=== PATIENT | male | born 1935 | race Caucasian/White ===

== ENCOUNTER 2017-11-16 23:19 | Inpatient (IN) | payer OTHER ==
[~2017-11-16] VITALS: Ht 177.8 cm; Wt 87.1 kg
[~2017-11-16 23:19] MED LIST: IBUP600 PO; Norco 5-325 Ta1 EACH PO; Robaxin-750750 MG PO
[2017-11-16] MEDS ORDERED: MELO7.5 (23:46)
[2017-11-16] MEDS ORDERED: LOSA50 PO (23:46)
[2017-11-16] MEDS ORDERED: METF500 PO (23:47)
[2017-11-16] MEDS ORDERED: LOVA40 (23:47)
[2017-11-16] MEDS ORDERED: GLYB3 PO (23:48)
[2017-11-17 00:46] LABS: Anion Gap 10 mmol/L (6-16); Blood Urea Nitrogen 27 mg/dL (8-24); Bun/Creatinine Ratio 22.1 (12.0-20.0); CO2, Blood 23 mmol/L (21-32); Calcium, Blood 8.6 mg/dL (8.5-10.1); Chloride, Blood 105 mmol/L (98-108); Creatinine, Blood 1.22 mg/dL (0.60-1.20); Glomerular Filtration Rate >60 (60-); Glucose, Blood 184 mg/dL (70-99); Sodium, Blood 138 mmol/L (136-145)
[2017-11-17 01:09] LABS: BASOPHILS ABSOLUTE AUTO 0.01 K/mm3 (0.00-0.23); BASOPHILS PERCENT AUTO 0 % (0-2); EOSINOPHILS PERCENT AUTO 0 % (0-6); Hematocrit 38.7 % (37.0-53.0); Hemoglobin 12.8 g/dL (13.5-17.5); IMMATURE GRAN ABSOLUTE AUTO 0.01 K/mm3 (0.00-0.10); IMMATURE GRAN PERCENT AUTO 0 % (0-1); LYMPHOCYTES ABSOLUTE AUTO 0.66 K/mm3 (0.84-5.20); LYMPHOCYTES PERCENT AUTO 10 % (21-46); MONOCYTES PERCENT AUTO 6 % (4-13); Mean Corpuscular HGB 29.4 pg (26.0-34.0); Mean Corpuscular HGB Conc 33.1 g/dL (31.5-36.5); Mean Corpuscular Volume 89 fL (80-100); Mean Platelet Volume 10.5 fL (9.1-12.4); NEUTROPHILS ABSOLUTE AUTO 5.48 K/mm3 (1.96-9.15); NEUTROPHILS PERCENT AUTO 83 % (41-73); Platelet Count 170 K/mm3 (150-400); RDW Coefficient Variation 13.4 % (11.7-14.2); RDW Standard Deviation 43.9 fL (35.1-46.3); Red Blood Cell Count 4.36 M/mm3 (4.30-5.90); White Blood Cell Count 6.56 K/mm3 (4.00-11.30)
[2017-11-17 03:15] LABS: Source, Urine Clean Catch
[2017-11-17 03:17] LABS: Bilirubin, Urine Neg (Neg); Blood, Urine Neg (Neg); Glucose Qualitative, Urine 3+ (Neg); Ketones, Urine 1+ (Neg); Leukocyte Esterase, Urine Neg (Neg); Nitrite, Urine Neg (Neg); Protein, Urine Neg (Neg); Urobilinogen, Urine NORM (Normal)
[2017-11-17 03:25] LABS: Appearance, Urine Clear (Clear); Color, Urine Yellow (P-Yellow)
[2017-11-17 04:00] LABS: Alanine Aminotransfer (ALT/SGP 20 U/L (12-78); Albumin, Blood 3.8 g/dL (3.4-5.0); Albumin/Globulin Ratio 1.2 (0.8-1.8); Alk Phos 59 U/L (50-136); Aspartate Aminotrans (AST/SGOT 42 U/L (12-37); Bilirubin, Direct <0.1 mg/dL (0.0-0.3); Bilirubin, Indirect Unable to Calculate mg/dL (0.1-0.7); Bilirubin, Total 0.5 mg/dL (0.1-1.0); Globulin, Blood 3.3 g/dL (2.2-4.0); Total Protein, Blood 7.1 g/dL (6.4-8.2)
[2017-11-17 05:33] LABS: BASOPHILS ABSOLUTE AUTO 0.01 K/mm3 (0.00-0.23); BASOPHILS PERCENT AUTO 0 % (0-2); EOSINOPHILS PERCENT AUTO 0 % (0-6); Hematocrit 38.5 % (37.0-53.0); Hemoglobin 12.9 g/dL (13.5-17.5); IMMATURE GRAN ABSOLUTE AUTO 0.01 K/mm3 (0.00-0.10); IMMATURE GRAN PERCENT AUTO 0 % (0-1); LYMPHOCYTES ABSOLUTE AUTO 0.68 K/mm3 (0.84-5.20); LYMPHOCYTES PERCENT AUTO 14 % (21-46); MONOCYTES ABSOLUTE AUTO 0.19 K/mm3 (0.16-1.47); MONOCYTES PERCENT AUTO 4 % (4-13); Mean Corpuscular HGB 29.6 pg (26.0-34.0); Mean Corpuscular HGB Conc 33.5 g/dL (31.5-36.5); Mean Corpuscular Volume 88 fL (80-100); Mean Platelet Volume 10.8 fL (9.1-12.4); NEUTROPHILS ABSOLUTE AUTO 3.99 K/mm3 (1.96-9.15); NEUTROPHILS PERCENT AUTO 82 % (41-73); Platelet Count 176 K/mm3 (150-400); RDW Coefficient Variation 13.4 % (11.7-14.2); RDW Standard Deviation 43.2 fL (35.1-46.3); Red Blood Cell Count 4.36 M/mm3 (4.30-5.90); White Blood Cell Count 4.88 K/mm3 (4.00-11.30)
[2017-11-17 06:02] LABS: Alanine Aminotransfer (ALT/SGP 18 U/L (12-78); Albumin, Blood 3.8 g/dL (3.4-5.0); Albumin/Globulin Ratio 1.3 (0.8-1.8); Alk Phos 58 U/L (50-136); Anion Gap 9 mmol/L (6-16); Aspartate Aminotrans (AST/SGOT 21 U/L (12-37); Bilirubin, Total 0.3 mg/dL (0.1-1.0); Blood Urea Nitrogen 25 mg/dL (8-24); Bun/Creatinine Ratio 22.1 (12.0-20.0); CO2, Blood 25 mmol/L (21-32); Calcium, Blood 8.5 mg/dL (8.5-10.1); Chloride, Blood 102 mmol/L (98-108); Creatinine, Blood 1.13 mg/dL (0.60-1.20); Glomerular Filtration Rate >60 (60-); Glucose, Blood 143 mg/dL (70-99); Potassium, Blood 3.6 mmol/L (3.5-5.5); Sodium, Blood 136 mmol/L (136-145); Total Protein, Blood 6.8 g/dL (6.4-8.2)
[2017-11-17] MEDS ORDERED: HYDR1TAB94 PO (09:29)
[2017-11-17] MEDS ORDERED: Robaxin-750750 MG PO (09:32)
[2017-11-17] MEDS ORDERED: Lovastatin20 MG PO (09:33)
[2017-11-17] MEDS ORDERED: Amlodipine Bes2.5 MG PO (09:36)
[2017-11-17] MEDS ORDERED: PIOG15 PO (09:37)
[2017-11-17] MEDS ORDERED: Glyburide5 MG PO (09:38)
[2017-11-18 02:55] LABS: Source, Urine Clean Catch
[2017-11-18 03:09] LABS: Bilirubin, Urine Neg (Neg); Blood, Urine 2+ (Neg); Glucose Qualitative, Urine 3+ (Neg); Ketones, Urine 4+ (Neg); Leukocyte Esterase, Urine Neg (Neg); Nitrite, Urine Neg (Neg); Protein, Urine 2+ (Neg); Urobilinogen, Urine NORM (Normal)
[2017-11-18 03:50] LABS: Amorphous Light (0-Heavy); Appearance, Urine Clear (Clear); Bacteria Not Seen /hpf; Color, Urine Yellow (P-Yellow); Mucus Light (0-Heavy); Red Blood Cells, Urine 0-2 /hpf (0-2); Squamous Epithelial Cells Not Seen /hpf (Few); White Blood Cells, Urine Not Seen /hpf (0-5)
[2017-11-20 05:17] LABS: BASOPHILS ABSOLUTE AUTO 0.01 K/mm3 (0.00-0.23); BASOPHILS PERCENT AUTO 0 % (0-2); EOSINOPHILS ABSOLUTE AUTO 0.01 K/mm3 (0.00-0.68); EOSINOPHILS PERCENT AUTO 0 % (0-6); Hematocrit 39.1 % (37.0-53.0); Hemoglobin 12.8 g/dL (13.5-17.5); IMMATURE GRAN PERCENT AUTO 0 % (0-1); LYMPHOCYTES ABSOLUTE AUTO 0.93 K/mm3 (0.84-5.20); LYMPHOCYTES PERCENT AUTO 25 % (21-46); MONOCYTES ABSOLUTE AUTO 0.52 K/mm3 (0.16-1.47); MONOCYTES PERCENT AUTO 14 % (4-13); Mean Corpuscular HGB 29.3 pg (26.0-34.0); Mean Corpuscular HGB Conc 32.7 g/dL (31.5-36.5); Mean Corpuscular Volume 90 fL (80-100); Mean Platelet Volume 11.2 fL (9.1-12.4); NEUTROPHILS ABSOLUTE AUTO 2.24 K/mm3 (1.96-9.15); NEUTROPHILS PERCENT AUTO 60 % (41-73); Platelet Count 168 K/mm3 (150-400); RDW Coefficient Variation 13.4 % (11.7-14.2); RDW Standard Deviation 44.1 fL (35.1-46.3); Red Blood Cell Count 4.37 M/mm3 (4.30-5.90); White Blood Cell Count 3.71 K/mm3 (4.00-11.30)
[2017-11-20 05:45] LABS: Anion Gap 10 mmol/L (6-16); Blood Urea Nitrogen 19 mg/dL (8-24); Bun/Creatinine Ratio 19.5 (12.0-20.0); CO2, Blood 25 mmol/L (21-32); Calcium, Blood 8.1 mg/dL (8.5-10.1); Chloride, Blood 104 mmol/L (98-108); Creatinine, Blood 0.98 mg/dL (0.60-1.20); Glomerular Filtration Rate >60 (60-); Glucose, Blood 64 mg/dL (70-99); Potassium, Blood 3.4 mmol/L (3.5-5.5); Sodium, Blood 139 mmol/L (136-145)
[2017-11-20] MEDS ORDERED: METF500C PO (09:07)
[2017-11-20] MEDS ORDERED: ASPI81CH PO (09:10)
== END 2017-11-20 10:26 | disposition home or self-care (01) | DRG 57 ==
LOC: ER 23:19 → MEDS 11-17 03:07 → ENPENDDIS 11-20 08:49 → MEDS 11-20 10:26
PROVIDERS: Emergency Medicine; Internal Medicine
DX: G20 Parkinson's disease (principal); E11.649 Type 2 diabetes mellitus with hypoglycemia without coma; E78.5 Hyperlipidemia, unspecified; N28.9 Disorder of kidney and ureter, unspecified; R53.81 Other malaise; Z86.39 Personal history of other endocrine, nutritional and metabolic disease; Z91.81 History of falling; E87.6 Hypokalemia; I10 Essential (primary) hypertension; Z79.84 Long term (current) use of oral hypoglycemic drugs
CPT/HCPCS: 36415; 70450; 71010; 71020; 73130; 80048; 80053; 80076; 81001; 81003; 82947; 85025; 87040; 93005; 93010; 97110; 97116; 97161; 97166; 97530; 97535; 99285; G8978; G8979; G8987; G8988; J1650; J2405

== ENCOUNTER 2021-04-20 01:28 | Observation (INO) | payer OTHER ==
[~2021-04-20] VITALS: Ht 172.7 cm; Wt 71.0 kg
[~2021-04-20 01:28] MED LIST changes: +Amlodipine Bes2.5 MG PO; +Aspirin EC81 MG PO; +GLYB3 PO; +Glyburide5 MG PO; +HYDR1TAB94 PO; +LOSA50 PO; +LOVA40; +Lovastatin20 MG PO; +MELO7.5; +METF500 PO; +METF500C PO; +PIOG15 PO
[2021-04-20 02:50] LABS: BASOPHILS ABSOLUTE AUTO 0.05 K/mm3 (0.00-0.23); BASOPHILS PERCENT AUTO 1 % (0-2); EOSINOPHILS ABSOLUTE AUTO 0.28 K/mm3 (0.00-0.68); EOSINOPHILS PERCENT AUTO 3 % (0-6); Hematocrit 41.1 % (37.0-53.0); Hemoglobin 13.7 g/dL (13.5-17.5); IMMATURE GRAN ABSOLUTE AUTO 0.02 K/mm3 (0.00-0.10); IMMATURE GRAN PERCENT AUTO 0 % (0-1); LYMPHOCYTES ABSOLUTE AUTO 1.61 K/mm3 (0.84-5.20); LYMPHOCYTES PERCENT AUTO 19 % (21-46); MONOCYTES ABSOLUTE AUTO 0.79 K/mm3 (0.16-1.47); MONOCYTES PERCENT AUTO 9 % (4-13); Mean Corpuscular HGB 29.1 pg (26.0-34.0); Mean Corpuscular HGB Conc 33.3 g/dL (31.5-36.5); Mean Corpuscular Volume 87 fL (80-100); Mean Platelet Volume 10.1 fL (9.1-12.4); NEUTROPHILS ABSOLUTE AUTO 5.66 K/mm3 (1.96-9.15); NEUTROPHILS PERCENT AUTO 67 % (41-73); Platelet Count 211 K/mm3 (150-400); RDW Coefficient Variation 12.8 % (11.7-14.2); White Blood Cell Count 8.41 K/mm3 (4.00-11.30)
[2021-04-20 03:10] LABS: Alanine Aminotransfer (ALT/SGP 16 U/L (12-78); Albumin, Blood 3.6 g/dL (3.4-5.0); Albumin/Globulin Ratio 1.1 (0.8-1.8); Alk Phos 119 U/L (50-136); Anion Gap 2 mmol/L (6-16); Aspartate Aminotrans (AST/SGOT 20 U/L (12-37); Bilirubin, Total 0.5 mg/dL (0.1-1.0); Blood Urea Nitrogen 15 mg/dL (8-24); Bun/Creatinine Ratio 14.7 (12.0-20.0); CO2, Blood 31 mmol/L (21-32); Calcium, Blood 8.6 mg/dL (8.5-10.1); Chloride, Blood 103 mmol/L (98-108); Creatinine, Blood 1.02 mg/dL (0.60-1.20); Ethanol (Alcohol), Blood, Med <3 mg/dL; Globulin, Blood 3.2 g/dL (2.2-4.0); Glomerular Filtration Rate >60 (60-); Glucose, Blood 211 mg/dL (70-99); Potassium, Blood 3.6 mmol/L (3.5-5.5); Sodium, Blood 136 mmol/L (136-145); Total Protein, Blood 6.8 g/dL (6.4-8.2); Troponin I <0.015 ng/mL (0.000-0.040)
[2021-04-20 05:57] LABS: Source, Urine Clean Catch
[2021-04-20 06:00] LABS: Appearance, Urine Clear (Clear); Bilirubin, Urine Neg (Neg); Blood, Urine Neg (Neg); Color, Urine Yellow (P-Yellow); Glucose Qualitative, Urine 4+ (Neg); Ketones, Urine Neg (Neg); Leukocyte Esterase, Urine Neg (Neg); Nitrite, Urine Neg (Neg); Protein, Urine 2+ (Neg); Specific Gravity, Urine 1.015 (1.003-1.022); Urobilinogen, Urine NORM (Normal); pH, Urine 6.5 (5.0-8.0)
[2021-04-20 06:05] LABS: Bacteria Not Seen /hpf; Mucus Light (0-Heavy); Red Blood Cells, Urine 0-2 /hpf (0-2); Squamous Epithelial Cells Not Seen /hpf (Few); White Blood Cells, Urine Not Seen /hpf (0-5)
--- NOTE | 2021-04-20 12:01 | NUR ---
PT ARRIVED TO THE MEDICAL FLOOR VIA GURNEY FROM THE ER, PT HARPAL ROBISON THE PT WAS ORIENTED TO THE ROOM CALL LIGHT AND LAYOUT, PT APPEARS TO HAVE SOME CONFUSION, THE PT APPEARS TO BE BREATHING EASILY AT THIS TIME, CALL LIGHT IN REACH, WILL CONTINUE TO MONITOR AND ASSESS FOR CHANGES
--- NOTE | 2021-04-20 12:57 | NUR ---
PT CONFUSED IS SOMEWHAT CONFUSED ABLE TO NAME SOME OF HIS MEDS STATES THAT HE ONLY TAKES FOUR
--- NOTE | 2021-04-20 17:32 | NUR ---
PT IS A/O TO SELF, SURROUNDINS AND PLACE, THE PT IS PLEASANT AND COOPERATIVE, SOME MEMORY DEFICITS/FORGETFULLNESS VERY [place], THE PT IS UP WITH ASSIST, HAS BEEN CONTINENT USEING THE URINAL. THE PT DENIED ANY PAIN OR NAUSEA, THE PT HAS A LOW MID BACK SCAR FROM A RECENT BACK SURGERY WITH A SMALL DEHISSED OPEN SPOT. AHRD TO TELL IF THE PT IS A POOR HISTORIAN OR JUST VERY [place] WHEN ASKED QUESTIONS ABOUT HIS MEDICAL HX, CALL LIGHT IN REACH, WILL CONTINUE TO MONITOR AND ASSESS FOR CHANGES
--- NOTE | 2021-04-21 04:25 | NUR ---
SHIFT SUMMARY PT PLEASANTLY CONFUSED. SLEEPY THIS EVENING. WHEN NOT BEING WOKEN BY STAFF PT SLEPT THROUGHOUT THE NIGHT. ATTEMPTED TO STAND PT AT SIDE OF BED. 2 MAX ASSIST. PT DID NOT TOLERATE STANDING FOR VERY LONG AND HAD TO SIT BACK DOWN AFTER ONLY STANDING FOR A FEW SECONDS. PT INCONTINENT. PT WEAK AND FATIGUED. DENIED ANY PAIN. VITAL SIGNS STABLE. WILL CONTINUE TO MONITOR.
--- NOTE | 2021-04-21 18:38 | NUR ---
SHIFT SUMMARY PT AXO X4 PLEASANT AND COOPERATIVE WITH CARE THOUGH FORGETFUL AND EXTREMELY [place]. VSS. NO ACUTE CHANGES THIS SHIFT. PATIENT WORKED WITH PHYSICAL AND OCCUPTIONAL THERAPY, SEE NOTE AND MINI-COG. PT'S SISTER CALLED THIS SHIFT AND STATES THAT SHE CANNOT CARE FOR PATIENT AND THAT PT "RAN AWAY FROM HER HOUSE." AFTER HE WAS CLEARED FROM SURGERY AND STATED THAT HE WANTED HIS KEYS SO THAT HE COULD "GO GET A JOB." SHE WAS ALSO GOING TO TRY TO FIND WHERE HIS CAR ENDED UP. BED IN LOW POSITION, CALL LIGHT WITHIN REACH. BED ALARM ON.
--- NOTE | 2021-04-21 19:15 | NUR ---
ASSUMED CARE RECEIVED REPORT FROM MISBAH LAMBERT. PT ASLEEP, IN NAD, RESPS E/U. NO ACUTE NEEDS ASSESSED AT THIS TIME. CALL LIGHT, POSSESSIONS IN REACH, BED IN LOW POSITION WITH ALARMS ON.
--- NOTE | 2021-04-22 06:39 | NUR ---
RN INTERVENTIONAL SUMMARY PT ASLEEP, IN NAD. VS REVIEWED,WNL. UP TO BATHROOM/BSC WITH ASSIST OF 2, TOLERATED WELL. COOPERATIVE WITH CARES. NO ACUTE CHANGES IN CONDITION TO REPORT OVERNIGHT; SLEPT T/O. DENIED PAIN. NO ACUTE NEEDS ASSESSED AT THIS TIME. CALL LIGHT, POSSESSIONS IN REACH, BED IN LOW AND LOCKED POSITION WITH ALARMS ON. WILL CONTINUE TO PROVIDE CARE NEEDED UNTIL REPORT GIVEN TO ONCOMING RN.
--- NOTE | 2021-04-22 17:09 | NUR ---
SHIFT SUMMARY PT A/0; HARD TO TEST PT ORIENTATION DUE TO HIM BEING VERY HARD OF HEARING. PT STILL EXPERIENCING HEARING ISSUE AFTER HAVING HEARING AIDES PUT IN. HE GETS UP WITH A 1-2 ASSIST USING FWW/GB. HE IS CONT./INCONT. AND CAN BE IMPULSIVE/UNSTEADY ON HIS FEET. BED ALARM ON. CURRENTLY RESTING IN BED WITH HIS CALL LIGHT IN REACH. VSS.
--- NOTE | 2021-04-22 19:10 | NUR ---
ASSUMED CARE RECEIVED REPORT FROM MISBAH PISANO. PT RESTING, IN NAD. NO ACUTE NEEDS ASSESSED AT THIS TIME. CALL LIGHT, POSSESSIONS IN REACH, BED IN LOW POSITION WITH ALARMS ON.
--- NOTE | 2021-04-23 06:24 | NUR ---
PUNCH FINISHER SUMMARY PT ASLEEP, IN NAD. VS REVIEWED,WNL. PT HAS BEEN SLEEPING T/O NIGHT, AMBULATED TO BATHROOM WITH 1-2 ASSIST WITH FWW AND GAITBELT; TOLERATED WELL. A&OX3, BUT IMPULSIVE AND FORGETFUL. NO ACUTE CONCERNS TO REPORT OVERNIGHT. NO ACUTE NEEDS ASSESSED AT THIS TIME. CALL LIGHT, POSSESSIONS IN REACH, BED IN LOW AND LOCKED POSITION WITH ALARMS ON. SCDS IN PLACE. WILL CONTINUE TO PROVIDE CARE NEEDED UNTIL REPORT GIVEN TO ONCOMING RN.
--- NOTE | 2021-04-23 19:19 | NUR ---
SHIFT SUMMARY PT CAN BE IMPULSIVE AT TIMES. 1 PERSON ASSIST WITH FWW AND GAIT BELT TO CHAIR OR INTO THE BATHROOM. PT HAS BEEN ACCEPTING OF CARE THIS SHIFT. NO ACUTE CHANGES TO REPORT THIS SHIFT. HE WALKED IN [place] WITH PHYSICAL THERAPHY. PT FAMILY VISITED AND BROUGHT HEARING AIDS FOR HIM TO USE. PT CURENLTY IN BED, CALL LIGHT W/IN REACH.
--- NOTE | 2021-04-23 21:51 | NUR ---
PT does not have own rx here for cholesterol lowering. Agrees he has low back pain but declined tylenol when offered. He is very hard of hearing with hearing aides out. Slow shuffling gait, ambulates to bathroom with moderate assist fww gb needs cues. Balance poor to sit on bedside. Back surgery several months ago in [place] per PT who knows surgeons name but not surgical date. [employer].
--- NOTE | 2021-04-24 06:05 | NUR ---
85 year old PT [employer] with hx of spine surgery within last several months unknown date done in [place] & Pt has well healing lower midline surgical scar open to air without s/sx of infection. PT has high risk for falls, needs mod assist 1 fww gaitbelt to ambulate to bathroom. Very hard of hearing has bilat hearing aides at [place] & he keeps them in a box & is concerned that the batteries will be stolen. Impulsive & high fall risk, doen not call for assist & is weak has poor balance to sit on side of bed. Slept well without pain relievers. Needs safe placement on DC due to poor insight into ability.
--- NOTE | 2021-04-24 16:47 | NUR ---
SHIFT SUMMARY PATIENT DENIES PAIN, NAUSEA, AND SHORTNESS OF BREATH. WORKED WITH PT. PATIENT UP SBA W/FWW AND GAITBELT TO BR. PATIENT EATING AND DRINKING WELL. PLEASANT AND COOPERATIVE WITH CARE. OCCASSIONAL FORGETFULNESS. CBG'S AND INSULIN DISCONTINUED. PLACEMENT NEEDED.
--- NOTE | 2021-04-25 04:46 | NUR ---
SHIFT SUMMARY NO ACUTE CHANGES TO REPORT THIS SHIFT PT HAS RESTED MOST OF THE NIGHT HE HAS DENIED PAIN OR NEEDS. VITALS STABLE, PT STILL AWAITING PLACEMENT AT THIS TIME. ASSESSMENT UNCHANGED. BED IN LOWEST POSITION, CALL LIGHT WITHIN REACH.
--- NOTE | 2021-04-25 19:17 | NUR ---
SHIFT SUMMARY PT IS AO AND PLEASANT. PT DENIES PAIN, N/V, SOB. PT IS ONE PERSON SBA WITH FWW. PT APPETITE IS GOOD. PT DID NOT HAVE VISITORS THIS SHIFT. PLAN IS FOR PLACEMENT. NO PROCEDURES DONE THIS SHIFT. PT IS IN BED, CALL LIGHT IN REACH, BED IN LOW POSITION WITH ALARM ON.
--- NOTE | 2021-04-26 03:30 | NUR ---
SHIFT SUMMARY NO ACUTE CHANGES TO REPORT THIS SHIFT. PT HAS RESTED MOST OF THE NIGHT. A/OX2-3. PLESANT AND COOPERATIVE. FORGETFUL AND IMPULSIVE AT TIMES. BED ALARM IN PLACE FOR SAFETY. PT 1 PA WITH FWW. PT AWAITING PLACEMENT AT THIS TIME. BED IN LOWEST POSITION, CALL LIGHT WITHIN REACH.
--- NOTE | 2021-04-26 15:18 | NUR ---
Pt appears to be resting comfortably in bed at this time. Unsure there are any identifiable goals for palliative care at this time, but will remain available. Placement issue seems the biggest issue at this time.
--- NOTE | 2021-04-26 17:47 | NUR ---
SHIFT SUMMARY. ALERT, ORIENTATED X 2-3, DIFFICULT TO ASSESS PT IS VERY [place] AND DOES NOT HAVE HEARING AIDES BATTERIES AVAILABLE, PT'S SISTER IN TO VISIST AND REPORTS THAT SHE WILL BRING THEM IN SOON POSSIBLE. PT DENIES PAIN, SOB, N/V. PLEASANT AND APPROPRIATE WITH CARE. NO OTHER CHANGES OR CONCERNS.
--- NOTE | 2021-04-27 04:26 | NUR ---
SHIFT SUMMARY ADMITTED FOR DEMENTIA. FULL CODE. PLAN IS FOR PLACEMENT. HE IS A 1 ASSIST W/FWW - BRP. HE CALLED APPROPRIATELY THROUGHOUT SHIFT. ADA DIET. HE IS [place]. HE IS PLEASANT AND COOPERATIVE WITH CARE. HE CAN BE IMPULSIVE @ TIMES. NO NEW CONCERNS THIS SHIFT.
--- NOTE | 2021-04-27 09:00 | NUR ---
PT SITTING UPRIGHT IN THE BED EATING FROM HIS BREAKFAST TRAY, AM MEDICATIONS TAKEN WITHOUT DIFFICULTY. [facility] REPRESENTATIVES IN ROOM TO INTERVIEW AND EVALUATE PT. CALL MOREJON IN REACH AND BED ALARM ARMED. WILL CONTINUE TO MONITOR.
--- NOTE | 2021-04-28 04:28 | NUR ---
SHIFT SUMMARY ADMITTED FOR DEMENTIA. FULL CODE. PLAN IS FOR PLACEMENT. HE WAS FOUND WITH HIS CAR IN A DITCH, HE HAD BEEN LIVING IN HIS CAR FOR PAST MONTH. HE IS VERY [place]. HE IS A 1 ASSIST W/FWW - BRP. HE IS PLEASANTLY CONFUSED. HE IS IMPULSIVE SO BED ALARM IS ON. NO NEW CONCERNS THIS SHIFT.
--- NOTE | 2021-04-28 17:34 | NUR ---
SHIFT SUMMARY PT ALERT. [place]. PT WORKED WITH PT/OT TODAY. PT DENIES ANY PAIN OR SOB DURING THIS SHIFT. NO APPARENT DISTRESS. PT WILL GO TO [facility] PER DITCH WORKER WITHIN COUPLE DAYS. BED IS IN THE LOWEST POSITION AND CALL LIGHT WITHIN REACH
--- NOTE | 2021-04-29 05:38 | NUR ---
SHIFT SUMMARY NO ACUTE CHANGES THIS SHIFT, SLEPT T/O THE NIGHT SETTING OFF THE BED ALARM A FEW TIMES TO USE THE BATHROOM, [place], PLEASANT & COOPERATIVE W/CARE, SLEEPING AT THIS TIME, CALL LIGHT IN REACH, BED ALARM ACTIVE, WILL CONT TO [facility] UNTIL REPORT GIVEN TO DAY RN.
--- NOTE | 2021-04-29 16:19 | NUR ---
NO ACUTE CHANGES THIS SHIFT. PATIENT WORKING WITH PT AND WALKED IN HALLS WITH FWW AND 1 ASSIST. CALLED APPROPRIATELY FOR ASSISTANCE TODAY. TOLERATING DIET. ABLE TO GET IN THE SHOWER AND DO HIS OWN CARE WITH SUPERVISION. DENIES ANY PAIN OR DISCOMFORT. CALM AND COOPERATIVE WITH CARE, VERY [place]. PLAN IS TO DC TO [facility].
--- NOTE | 2021-04-30 04:25 | NUR ---
SHIFT SUMMARY PT WAS ALREADY SLEEPING AT START OF SHIFT, WOKE FOR SHIFT ASSESSMENT & EASILY RETURNED TO SLEEP & SLEPT T/O THE NIGHT, PT APPEARS TO BE SLEEPING COMFORTABLY AT THIS TIME, CALL LIGHT IN REACH, BED ALARM ACTIVE, WILL CONT TO MONITOR UNTIL REPORT GIVEN TO DAY RN.
--- NOTE | 2021-04-30 17:10 | NUR ---
NO ACUTE CHANGES THIS SHIFT. AWAITING PLACEMENT AT [facility] ON 05/06.
--- NOTE | 2021-05-01 04:36 | NUR ---
SHIFT SUMMARY ALERT, ABLE TO MAKE NEEDS KNOWN. VERY [place]. COOPERATIVE WT CARE. ANSWERS QUESTIONS APPROPRIATELY. NO C/O PAIN/DISCOMFORT. APPEARED TO REST WELL OVERNIGHT. 1P ASSIST /c FWW & GB TO BATHROOM; STEADY GAIT NOTED. NO ACUTE CHANGES NOTED OVERNIGHT. VSS/AFEBRILE. BED REMAINED IN LOWEST POSITION; ALARM ON. CALL LIGHT AND BELONGINGS WITHIN REACH. CONTINUE WITH CURRENT PLAN OF CARE. REPORT TO ONCOMING RN.
--- NOTE | 2021-05-01 18:53 | NUR ---
SHIFT SUMMARY: NO ACUTE CHANGES TO REPORT THIS SHIFT. HX CVA; ALERT; [place]; IMPULSIVE. NO C/O PAIN THIS SHIFT. EXPECTED PLACEMENT INTO [facility] 05/06. [facility].
--- NOTE | 2021-05-02 04:29 | NUR ---
SHIFT SUMMARY ALERT, ABLE TO MAKE NEEDS KNOWN. [place]. COOPERATIVE WITH CARE. ANSWERS QUESTIONS APPROPRIATELY. NO C/O PAIN/DISCOMFORT. APPEARED TO REST OVERNIGHT. NO ACUTE CHANGES NOTED. VSS/AFEBRILE. BED REMAINS IN LOWEST POSITION; ALARM ON. CALL LIGHT AND BELONGINGS WITHIN REACH. DOES NOT UTILIZE CALL LIGHT. CONTINUE WITH CURRENT PLAN OF CARE. REPORT TO ONCOMING RN.
--- NOTE | 2021-05-02 18:33 | NUR ---
SHIFT SUMMARY: NO ACUTE EVENTS TO REPORT THIS SHIFT. PT HX DEMENTIA. CALM & COOPERATIVE WITH CARE. NO C/O PAIN THIS SHIFT. PT CONTINENT OF BLADDER/VOIDING SPONTANEOUSLY. MEDICALLY STABLE; AWAITING PLACEMENT-POSSIBLE D/C TO [facility] ON 05/06. [facility].
--- NOTE | 2021-05-03 04:16 | NUR ---
SHIFT SUMMARY A/O, ABLE TO MAKE NEEDS KNOWN. [place]. COOPERATIVE WITH CARE. ANSWERS QUESTIONS APPROPRIATELY. NO C/O PAIN/DISCOMFORT. APPEARED TO REST WELL OVERNIGHT. NO ACUTE CHANGES NOTED OVERNIGHT. VSS/AFEBRILE. BED REMAINS IN LOWEST POSITION; ALARM ON. CAN BE IMPUSLIVE AT TIMES. CALL LIGHT AND BELONGINGS WITHIN REACH. COTNINUE WITH CURRENT PLAN OF CARE. REPORT TO ONCOMING RN.
[2021-05-03 05:35] LABS: CHOL/HDL RATIO 3.8; Cholesterol 205 mg/dL (50-200); HDL Cholesterol 54 mg/dL (>39); LDL/HDL RATIO 2.6; Low Density Lipoprotein Chol 138 mg/dL (0-110); Triglycerides 65 mg/dL (30-160); Very Low Density Lipoprot Chol 13 mg/dL (6-32)
--- NOTE | 2021-05-03 16:26 | NUR ---
SHIFT SUMMARY- PT IS ALERT, PLESANT AND COOPERATIVE. HE IS EATING AND DRINKING WELL. HE SLEPT FOR MOST OF THE MORNING. HE IS EATING AND DRINKING WELL. HE IS AMBULATING TO THE RESTROOM. HIS BED IS IN THE LOW POSITON AND CALL LIGHT IS WITHIN REACH.
--- NOTE | 2021-05-04 05:00 | NUR ---
CLAMPER SUMMARY NO ACUTE CHANGES THIS SHIFT. PT AAO TO SELF AND STAFF, FOLLOWS DIRECTION. PT REPLIED NO TO WHAT YEAR IT WAS, WHAT STATE HE WAS IN, OR THE NAME OF THE HOSPITAL. PT A BIT FLAT AND IRRITABLE AND SEEMED LIKE HE WAS SAYING NO TO QUESTIONS BECAUSE HE WAS ANNOYED. PT DENIED PAIN, SOB. HAS SLEPT MOST OF THE NIGHT. SET OFF BED ALARM ONCE TO USE THE RESTROOM. 1 ASSIST W/ FWW. VSS, WILL CONTINUE TO MONITOR.
--- NOTE | 2021-05-05 05:18 | NUR ---
SHIFT SUMMARY PT IS AN 85 Y/O MALE, ADMITTED FOR DEMENTIA. HE IS A&O X 2, FORGETFUL AND CONFUSED AT TIMES. 1PA C FWW TO THE BATHROOM. NO C/O ACUTE PAIN, NAUSEA OR SOB. VITAL SIGNS STABLE. PT SLEPT WELL THROUGH THE NIGHT. NO ACUTE CHANGES IN PT CONDITION NOTED. WILL CONTINUE TO MONITOR AND TREAT PER EMAR UNTIL HAND OFF TO DAY SHIFT RN.
[2021-05-05 05:25] LABS: Anion Gap 6 mmol/L (6-16); Blood Urea Nitrogen 24 mg/dL (8-24); Bun/Creatinine Ratio 29.4 (12.0-20.0); CO2, Blood 26 mmol/L (21-32); Calcium, Blood 8.4 mg/dL (8.5-10.1); Chloride, Blood 105 mmol/L (98-108); Creatinine, Blood 0.82 mg/dL (0.60-1.20); Glomerular Filtration Rate >60 (60-); Glucose, Blood 121 mg/dL (70-99); Potassium, Blood 3.8 mmol/L (3.5-5.5); Sodium, Blood 137 mmol/L (136-145)
[2021-05-05] MEDS ORDERED: TAMS.4ER PO (11:05)
[2021-05-05] MEDS ORDERED: AMLO5 PO (11:06)
[2021-05-05] MEDS ORDERED: Acetaminophen325 M1 PO (11:06)
--- NOTE | 2021-05-05 11:39 | NUR ---
REPORT CALLED TO [facility]. MISBAH KERNS AT [facility] GIVEN REPORT ON PT AND DENIES ANY FURTHER QUESTIONS.
--- NOTE | 2021-05-05 13:04 | NUR ---
DISCHARGE PT DISCHARGED TO [facility]. REPORT ALREADY CALLED TO RN THERE. PT TRANSPORTED BY [facility].
== END 2021-05-05 12:58 | disposition home health service (06) ==
LOC: ER 01:28 → MEDS 01:29
PROVIDERS: Emergency Medicine; Internal Medicine; ADMIT Family Medicine
DX: F03.91 Unspecified dementia, unspecified severity, with behavioral disturbance (principal); E11.9 Type 2 diabetes mellitus without complications; I10 Essential (primary) hypertension; N40.1 Benign prostatic hyperplasia with lower urinary tract symptoms; R33.8 Other retention of urine; Z88.8 Allergy status to other drugs, medicaments and biological substances; Z79.82 Long term (current) use of aspirin; Z79.84 Long term (current) use of oral hypoglycemic drugs; Z79.899 Other long term (current) drug therapy; Z86.73 Personal history of transient ischemic attack (TIA), and cerebral infarction without residual deficits
CPT/HCPCS: 36415; 70450; 80048; 80053; 80061; 81001; 82947; 83036; 84484; 85025; 93005; 93010; 96360; 96361; 96372; 97110; 97116; 97129; 97162; 97165; 97530; 97535; 99285-25; A9270; G0378; G0480; J1650; J7120

== ENCOUNTER 2022-01-26 09:55 | Emergency (ER) | payer OTHER ==
[~2022-01-26] VITALS: Ht 165.1 cm; Wt 68.0 kg
[~2022-01-26 09:55] MED LIST changes: +ASPI81CH PO; +ATOR40TA PO; +Acetaminophen325 M1 PO; -Aspirin EC81 MG PO; +GLUCOPHAGE1000 M1 PO; +JARDIANCE10 MG PO; +LOSA25 PO; -LOSA50 PO; -METF500C PO; +TAMS.4ER PO; +XARELTO20 MG PO
[2022-01-26 10:39] LABS: BASOPHILS ABSOLUTE AUTO 0.03 K/mm3 (0.00-0.23); BASOPHILS PERCENT AUTO 0 % (0-2); EOSINOPHILS ABSOLUTE AUTO 0.03 K/mm3 (0.00-0.68); EOSINOPHILS PERCENT AUTO 0 % (0-6); Hematocrit 35.3 % (37.0-53.0); Hemoglobin 11.8 g/dL (13.5-17.5); IMMATURE GRAN ABSOLUTE AUTO 0.01 K/mm3 (0.00-0.10); IMMATURE GRAN PERCENT AUTO 0 % (0-1); LYMPHOCYTES ABSOLUTE AUTO 0.73 K/mm3 (0.84-5.20); LYMPHOCYTES PERCENT AUTO 11 % (21-46); MONOCYTES ABSOLUTE AUTO 0.67 K/mm3 (0.16-1.47); MONOCYTES PERCENT AUTO 10 % (4-13); Mean Corpuscular HGB 29.2 pg (26.0-34.0); Mean Corpuscular HGB Conc 33.4 g/dL (31.5-36.5); Mean Corpuscular Volume 87 fL (80-100); NEUTROPHILS ABSOLUTE AUTO 5.35 K/mm3 (1.96-9.15); NEUTROPHILS PERCENT AUTO 79 % (41-73); Platelet Count 212 K/mm3 (150-400); RDW Coefficient Variation 13.3 % (11.7-14.2); RDW Standard Deviation 43.1 fL (35.1-46.3); Red Blood Cell Count 4.04 M/mm3 (4.30-5.90); White Blood Cell Count 6.82 K/mm3 (4.00-11.30)
[2022-01-26 11:00] LABS: Anion Gap 9 mmol/L (6-16); Blood Urea Nitrogen 16 mg/dL (8-24); Bun/Creatinine Ratio 19.6 (12.0-20.0); CO2, Blood 24 mmol/L (21-32); Calcium, Blood 8.4 mg/dL (8.5-10.1); Chloride, Blood 105 mmol/L (98-108); Creatinine, Blood 0.82 mg/dL (0.60-1.20); Glomerular Filtration Rate >60 (60-); Glucose, Blood 152 mg/dL (70-99); Potassium, Blood 3.8 mmol/L (3.5-5.5); Sodium, Blood 138 mmol/L (136-145); Thyroid Stimulating Hormone 0.252 uIU/mL (0.360-4.800)
[2022-01-26] MEDS ORDERED: CITALOPRAM HBR10 MG PO (11:26)
[2022-01-26] MEDS ORDERED: CLOP75 PO (11:26)
[2022-01-26 11:49] LABS: Free Thyroxine 1.28 ng/dL (0.70-1.60); Triiodothyronine, Free 2.26 pg/mL (2.18-3.98)
[2022-01-26] MEDS ORDERED: METSALMENC TOP (12:24)
== END 2022-01-26 13:47 | disposition home or self-care (01) ==
LOC: ER 09:55
PROVIDERS: Student in an Organized Health Care Education/Training Program
DX: S09.90XA Unspecified injury of head, initial encounter (principal); S30.0XXA Contusion of lower back and pelvis, initial encounter; I49.1 Atrial premature depolarization; E11.9 Type 2 diabetes mellitus without complications; I10 Essential (primary) hypertension; E78.5 Hyperlipidemia, unspecified; Z79.899 Other long term (current) drug therapy; W19.XXXA Unspecified fall, initial encounter
CPT/HCPCS: 70450; 72125; 72128; 72131; 80048; 84439; 84443; 84481; 85025; 93005; 93010; 99284-25; A9270

== ENCOUNTER 2022-02-24 21:45 | Emergency (ER) | payer OTHER ==
[~2022-02-24] VITALS: Ht 172.7 cm; Wt 68.0 kg
[~2022-02-24 21:45] MED LIST changes: +CITALOPRAM HBR10 MG PO; +CLOP75 PO; +METSALMENC TOP
[2022-02-24 23:55] LABS: BASOPHILS ABSOLUTE AUTO 0.04 K/mm3 (0.00-0.23); BASOPHILS PERCENT AUTO 1 % (0-2); EOSINOPHILS ABSOLUTE AUTO 0.26 K/mm3 (0.00-0.68); EOSINOPHILS PERCENT AUTO 3 % (0-6); Hematocrit 34.9 % (37.0-53.0); Hemoglobin 11.7 g/dL (13.5-17.5); IMMATURE GRAN ABSOLUTE AUTO 0.01 K/mm3 (0.00-0.10); IMMATURE GRAN PERCENT AUTO 0 % (0-1); LYMPHOCYTES ABSOLUTE AUTO 1.32 K/mm3 (0.84-5.20); LYMPHOCYTES PERCENT AUTO 17 % (21-46); MONOCYTES ABSOLUTE AUTO 0.75 K/mm3 (0.16-1.47); MONOCYTES PERCENT AUTO 10 % (4-13); Mean Corpuscular HGB 30.4 pg (26.0-34.0); Mean Corpuscular HGB Conc 33.5 g/dL (31.5-36.5); Mean Corpuscular Volume 91 fL (80-100); Mean Platelet Volume 10.2 fL (9.1-12.4); NEUTROPHILS ABSOLUTE AUTO 5.43 K/mm3 (1.96-9.15); NEUTROPHILS PERCENT AUTO 70 % (41-73); Platelet Count 207 K/mm3 (150-400); RDW Coefficient Variation 13.9 % (11.7-14.2); RDW Standard Deviation 46.3 fL (35.1-46.3); Red Blood Cell Count 3.85 M/mm3 (4.30-5.90); White Blood Cell Count 7.81 K/mm3 (4.00-11.30)
[2022-02-25 00:14] LABS: Alanine Aminotransfer (ALT/SGP 17 U/L (12-78); Albumin, Blood 3.4 g/dL (3.4-5.0); Albumin/Globulin Ratio 1.2 (0.8-1.8); Alk Phos 88 U/L (50-136); Anion Gap 8 mmol/L (6-16); Aspartate Aminotrans (AST/SGOT 11 U/L (12-37); Bilirubin, Total 0.2 mg/dL (0.1-1.0); Blood Urea Nitrogen 30 mg/dL (8-24); Bun/Creatinine Ratio 29.1 (12.0-20.0); CO2, Blood 26 mmol/L (21-32); Chloride, Blood 106 mmol/L (98-108); Creatinine, Blood 1.03 mg/dL (0.60-1.20); Globulin, Blood 2.9 g/dL (2.2-4.0); Glomerular Filtration Rate >60 (60-); Glucose, Blood 150 mg/dL (70-99); Potassium, Blood 4.7 mmol/L (3.5-5.5); Sodium, Blood 140 mmol/L (136-145); Total Protein, Blood 6.3 g/dL (6.4-8.2)
== END 2022-02-25 03:23 | disposition home or self-care (01) ==
LOC: ER 21:45
PROVIDERS: Emergency Medicine
DX: G45.9 Transient cerebral ischemic attack, unspecified (principal); Z88.8 Allergy status to other drugs, medicaments and biological substances; Z91.011 Allergy to milk products; Z79.899 Other long term (current) drug therapy; Z79.84 Long term (current) use of oral hypoglycemic drugs; E11.9 Type 2 diabetes mellitus without complications; I10 Essential (primary) hypertension; E78.5 Hyperlipidemia, unspecified; F03.90 Unspecified dementia, unspecified severity, without behavioral disturbance, psychotic disturbance, mood disturbance, and anxiety
CPT/HCPCS: 36415; 70450; 80053; 85025; 93005; 93010; 99285-25

== ENCOUNTER 2022-05-04 14:55 | Emergency (ER) | payer OTHER ==
[~2022-05-04] VITALS: Ht 172.7 cm; Wt 68.0 kg
== END 2022-05-04 17:04 | disposition home or self-care (01) ==
LOC: ER 14:55
DX: S09.90XA Unspecified injury of head, initial encounter (principal); W18.30XA Fall on same level, unspecified, initial encounter; I10 Essential (primary) hypertension; E11.9 Type 2 diabetes mellitus without complications; E78.5 Hyperlipidemia, unspecified; Z79.84 Long term (current) use of oral hypoglycemic drugs; Z79.01 Long term (current) use of anticoagulants; Z79.02 Long term (current) use of antithrombotics/antiplatelets; Z88.8 Allergy status to other drugs, medicaments and biological substances; Z91.011 Allergy to milk products
CPT/HCPCS: 70450; 99284-25

== ENCOUNTER 2022-06-03 09:37 | Emergency (ER) | payer OTHER ==
[~2022-06-03] VITALS: Ht 172.7 cm; Wt 68.0 kg
== END 2022-06-03 11:59 | disposition home or self-care (01) ==
LOC: ER 09:37
DX: L76.22 Postprocedural hemorrhage of skin and subcutaneous tissue following other procedure (principal); Y84.8 Other medical procedures as the cause of abnormal reaction of the patient, or of later complication, without mention of misadventure at the time of the procedure; D68.32 Hemorrhagic disorder due to extrinsic circulating anticoagulants; T45.525A Adverse effect of antithrombotic drugs, initial encounter; I10 Essential (primary) hypertension; E78.5 Hyperlipidemia, unspecified; E11.9 Type 2 diabetes mellitus without complications; Z79.02 Long term (current) use of antithrombotics/antiplatelets; Z79.84 Long term (current) use of oral hypoglycemic drugs; Z88.8 Allergy status to other drugs, medicaments and biological substances; Z91.011 Allergy to milk products
CPT/HCPCS: 99283-25; A9270

== ENCOUNTER 2023-11-15 15:27 | Emergency (ER) | payer OTHER ==
[~2023-11-15] VITALS: Ht 162.6 cm; Wt 63.5 kg
[2023-11-15 17:48] VITALS: BP 126/74
== END 2023-11-15 17:48 | disposition home or self-care (01) ==
LOC: ER 15:27
DX: S09.90XA Unspecified injury of head, initial encounter (principal); I10 Essential (primary) hypertension; E11.9 Type 2 diabetes mellitus without complications; E78.5 Hyperlipidemia, unspecified; W01.0XXA Fall on same level from slipping, tripping and stumbling without subsequent striking against object, initial encounter; Z91.011 Allergy to milk products; Z88.8 Allergy status to other drugs, medicaments and biological substances; Z79.01 Long term (current) use of anticoagulants; Z79.02 Long term (current) use of antithrombotics/antiplatelets; Z79.84 Long term (current) use of oral hypoglycemic drugs; Z79.899 Other long term (current) drug therapy
CPT/HCPCS: 70450; 99284-25

== ENCOUNTER 2023-12-10 13:02 | Emergency (ER) | payer OTHER ==
[~2023-12-10] VITALS: Ht 172.7 cm; Wt 68.0 kg
[2023-12-10 14:45] VITALS: BP 148/71
== END 2023-12-10 15:00 | disposition home or self-care (01) ==
LOC: ER 13:02
DX: S39.012A Strain of muscle, fascia and tendon of lower back, initial encounter (principal); F03.90 Unspecified dementia, unspecified severity, without behavioral disturbance, psychotic disturbance, mood disturbance, and anxiety; I10 Essential (primary) hypertension; E78.5 Hyperlipidemia, unspecified; E11.9 Type 2 diabetes mellitus without complications; Z86.73 Personal history of transient ischemic attack (TIA), and cerebral infarction without residual deficits; Z79.02 Long term (current) use of antithrombotics/antiplatelets; Z79.01 Long term (current) use of anticoagulants; Z79.84 Long term (current) use of oral hypoglycemic drugs; Z79.899 Other long term (current) drug therapy; Z88.8 Allergy status to other drugs, medicaments and biological substances; Z91.011 Allergy to milk products; W01.198A Fall on same level from slipping, tripping and stumbling with subsequent striking against other object, initial encounter; Y92.129 Unspecified place in nursing home as the place of occurrence of the external cause
CPT/HCPCS: 70450; 93005; 93010; 99284-25; A9270

== ENCOUNTER 2024-01-12 13:38 | Emergency (ER) | payer OTHER ==
[~2024-01-12] VITALS: Ht 160 cm; Wt 59.0 kg
[2024-01-12] MEDS ORDERED: NS 1,000 ML IV SCH (14:35)
[2024-01-12 14:37] LABS: BASOPHILS ABSOLUTE AUTO 0.02 K/mm3 (0.00-0.23); BASOPHILS PERCENT AUTO 0 % (0-2); EOSINOPHILS ABSOLUTE AUTO 0.01 K/mm3 (0.00-0.68); EOSINOPHILS PERCENT AUTO 0 % (0-6); Hematocrit 38.1 % (37.0-53.0); Hemoglobin 12.5 g/dL (13.5-17.5); IMMATURE GRAN ABSOLUTE AUTO 0.01 K/mm3 (0.00-0.10); IMMATURE GRAN PERCENT AUTO 0 % (0-1); LYMPHOCYTES PERCENT AUTO 12 % (21-46); MONOCYTES ABSOLUTE AUTO 0.75 K/mm3 (0.16-1.47); MONOCYTES PERCENT AUTO 10 % (4-13); Mean Corpuscular HGB 29.5 pg (26.0-34.0); Mean Corpuscular HGB Conc 32.8 g/dL (31.5-36.5); Mean Corpuscular Volume 90 fL (80-100); Mean Platelet Volume 9.4 fL (9.1-12.4); NEUTROPHILS PERCENT AUTO 77 % (41-73); Platelet Count 195 K/mm3 (150-400); Red Blood Cell Count 4.24 M/mm3 (4.30-5.90); White Blood Cell Count 7.29 K/mm3 (4.00-11.30)
[2024-01-12 15:01] LABS: Albumin, Blood 3.1 g/dL (3.4-5.0); Albumin/Globulin Ratio 0.8 (0.8-1.8); Bilirubin, Total 0.6 mg/dL (0.1-1.0); Bun/Creatinine Ratio 22.2 (12.0-20.0); Calcium, Blood 8.5 mg/dL (8.5-10.1); Creatinine, Blood 0.94 mg/dL (0.60-1.20); Globulin, Blood 3.8 g/dL (2.2-4.0); Potassium, Blood 3.5 mmol/L (3.5-5.5); Total Protein, Blood 6.9 g/dL (6.4-8.2)
[2024-01-12 15:48] LABS: Influenza A, PCR NEGATIVE (NEGATIVE); Influenza B, PCR NEGATIVE (NEGATIVE); SARS-Cov-2 (COVID-19) PCR, MMC NEGATIVE (NEGATIVE)
[2024-01-12 15:49] LABS: Resp Syncytial Virus, PCR POSITIVE (NEGATIVE)
[2024-01-12 16:00] VITALS: BP 157/78
[2024-01-12 16:40] LABS: Source, Urine Voided
[2024-01-12 16:44] LABS: Appearance, Urine Clear (Clear); Bilirubin, Urine Neg (Neg); Blood, Urine Neg (Neg); Color, Urine Yellow (P-Yellow); Glucose Qualitative, Urine 3+ (Neg); Ketones, Urine 2+ (Neg); Leukocyte Esterase, Urine Neg (Neg); Nitrite, Urine Neg (Neg); Protein, Urine 2+ (Neg); Urobilinogen, Urine NORM (Normal)
[2024-01-12 17:13] LABS: Granular Casts 0-2 /lpf (0); Hyaline Casts 0-2 /lpf (0-2); Mucus Light (0-Heavy); Red Blood Cells, Urine 0-2 /hpf (0-2); White Blood Cells, Urine 0-2 /hpf (0-5)
[2024-01-12 17:14] LABS: Bacteria Few /hpf; Squamous Epithelial Cells Not Seen /hpf (Few)
== END 2024-01-12 19:11 | disposition home or self-care (01) ==
LOC: ER 13:38
PROVIDERS: Emergency Medicine
DX: R53.1 Weakness (principal); B97.4 Respiratory syncytial virus as the cause of diseases classified elsewhere; Z88.8 Allergy status to other drugs, medicaments and biological substances; Z91.011 Allergy to milk products; Z79.899 Other long term (current) drug therapy; Z79.84 Long term (current) use of oral hypoglycemic drugs; I10 Essential (primary) hypertension; E11.9 Type 2 diabetes mellitus without complications; E78.5 Hyperlipidemia, unspecified
CPT/HCPCS: 0241U; 70450; 71045; 80053; 81001; 85025; 96360; 99285-25; J7030